=== PATIENT | female | born 1945 | race Caucasian/White ===

== ENCOUNTER 2023-03-11 17:26 | Emergency (ER) | payer MEDICARE, SELFPAY ==
[2023-03-11 18:11] VITALS: BP 168/74; PULSE 79; RESP 16; TEMP 37.2; O2SAT 96
[2023-03-11 18:15] VITALS: BMI 30.3
--- NOTE | 2023-03-11 18:26 | CTR_ITS ---
PROCEDURE INFORMATION: Exam: CT Head Without Contrast Exam date and time: 03/11/2023 6:37 PM Age: 77 years old Clinical indication: Injury or trauma; Blunt trauma (contusions or hematomas); Patient HX: Fall today. Contusion to left lower orbit. ; Additional info: Fall with head injury TECHNIQUE: Imaging protocol: Computed tomography of the head without contrast. Radiation optimization: All CT scans at this facility use at least one of these dose optimization techniques: automated exposure control; mA and/or kV adjustment per patient size (includes targeted exams where dose is matched to clinical indication); or iterative reconstruction. REPORTING DATA: Count of CT and Cardiac NM exams in prior 12 months: This patient has received 0 known CTs and 0 known cardiac nuclear medicine studies in the 12 months prior to the current study. COMPARISON: No relevant prior studies available. RADIATION DOSE METRICS: Total DLP (mGy-cm): 1095.78 FINDINGS: Brain: There is mild small vessel disease. There is no evidence of acute parenchymal hemorrhage, extra-axial collection, or acute infarction. There is no mass effect, midline shift, or downward herniation. Cerebral ventricles: No ventriculomegaly. Paranasal sinuses: Visualized sinuses are unremarkable. No fluid levels. Mastoid air cells: Visualized mastoid air cells are well aerated. Orbital cavities: There is a fracture through the inferior wall of the left orbit. Please refer to dedicated facial bone CT. Bones/joints: See Orbital cavities finding. Soft tissues: Unremarkable. CT/CT head wo con* [id number] IMPRESSION: Mild small vessel disease. No evidence of acute intracranial process.
--- NOTE | 2023-03-11 18:29 | CTR_ITS ---
PROCEDURE INFORMATION: Exam: CT Maxillofacial Without Contrast Exam date and time: 03/11/2023 6:39 PM Age: 77 years old Clinical indication: Injury or trauma; Blunt trauma (contusions or hematomas); Orbit/periorbital; Patient HX: Fall today. Contusion to left lower orbit. ; Additional info: Fall with facial injuries TECHNIQUE: Imaging protocol: Computed tomography of the face without contrast. Radiation optimization: All CT scans at this facility use at least one of these dose optimization techniques: automated exposure control; mA and/or kV adjustment per patient size (includes targeted exams where dose is matched to clinical indication); or iterative reconstruction. REPORTING DATA: Count of CT and Cardiac NM exams in prior 12 months: This patient has received 0 known CTs and 0 known cardiac nuclear medicine studies in the 12 months prior to the current study. COMPARISON: CT head wo con* [id number] 03/11/2023 6:37 PM RADIATION DOSE METRICS: Total DLP (mGy-cm): 589.58 FINDINGS: Orbital cavities: There is a comminuted and displaced fracture through the inferior wall of the left orbit with inferior displacement of multiple fracture components. There is also an acute fracture through the inferior left lamina papyracea. 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 Paranasal sinuses: There is presumed hematoma in the left maxillary sinus. Soft tissues: There is left periorbital soft tissue swelling. CT/CT facial bones wo con* [id number] IMPRESSION: 1. Comminuted and displaced fracture through the inferior wall of the left orbit with inferior displacement of multiple fracture components. Correlation for entrapment is recommended. 2. Acute fracture through the inferior left lamina papyracea.
[2023-03-11 18:34] LABS: Basophils # 0.1 10^3/uL (0.0-0.1); Basophils % 0.8 %; Eosinophils # 0.4 10^3/uL (0.0-0.8); Eosinophils % 4.8 %; Hematocrit 45.3 % (37.0-47.0); Hemoglobin 15.5 g/dL (11.5-15.3); Lymphocytes % 26.9 %; Mean Corpuscular HGB Conc 34.2 g/dL (30.0-36.0); Mean Corpuscular Volume 90.6 fl (81-99); Mean Platelet Volume 11.5 fL (7.4-10.4); Monocytes # 0.5 10^3/uL (0.2-0.9); Monocytes % 7.2 %; Neutrophils # 4.49 10^3/uL (1.8-7.7); Nucleated Red Blood Cells % 0 %; Platelet Count 190 10^3/cmm (130-400); Red Cell Distribution Width 14.1 % (12.1-15.1); White Blood Count 7.5 10^3/uL (4.0-10.0)
[2023-03-11 18:54] LABS: Alanine Aminotransferase 20 U/L (0-33); Albumin Level 4.2 g/dL (3.5-5.2); Alkaline Phosphatase 94 U/L (35-105); Anion Gap 14.7 (5-19); Aspartate Amino Transferase 19 U/L (0-32); Blood Urea Nitrogen 8 mg/dL (8-23); Carbon Dioxide 25 mmol/L (22-29); Chloride 103 mmol/L (98-107); Globulin 2.8 g/dL (1.3-4.6); Glucose 92 mg/dL (65-115); Osmolality Calculated 286 mOsm/kg (285-295); Potassium 3.7 mmol/L (3.5-5.1); Sodium 139 mmol/L (136-145); Total Bilirubin 1.1 mg/dL (0.15-1.2)
--- NOTE | 2023-03-11 19:16 | W.ED.NEUROSD ---
HPI - Neuro Symptoms/Deficit General: Chief Complaint: Neuro Symptoms/Deficit Stated Complaint: FACIAL DROOP RESOLVED Time Seen by Provider: 03/11/23 17:32 Source: patient Mode of arrival: EMS History of Present Illness: This 77-year-old female presents to the ER for evaluation of head injury that occurred 4 to 5 days ago. Patient fell, hitting the left side of the face. There was no associated loss of consciousness and patient felt well at the time, daughter had wanted to bring her to the hospital but patient declined. Today, daughter stated that patient's left side of the face felt like it was drooping and patient was talking like someone without teeth. Patient noted that some of her teeth were missing but in any case came in to be evaluated. She is at her baseline and is in no distress. Associated symptoms: Deny chest pain or headache(s) Review of Systems Const: Denies: chills, body aches or change in appetite Eyes: Denies: change in vision or eye discharge ENMT: Denies: throat pain, dental pain or nasal discharge Card: Denies: chest pain or lightheadedness : Denies: dysuria Musc: Denies: neck pain or back pain Neuro: Reports: Slurred speech present and other (Facial droop); Denies: headache(s) or weakness in extremities Psych: Denies: depression Srinivas/Lymph: Denies: easy bruising All/Imm: Denies: urticaria, tongue swelling or facial swelling Physical Exam Const: COMMON NORMALS: no acute distress, patient oriented x3, no limitations and alert HENMT: COMMON NORMALS: normocephalic HEAD & SCALP: normocephalic OTHER: Healing left periorbital bruise. Tenderness over the left cheek. Eye: COMMON NORMALS: EOMs intact bilaterally Neck/C-Spine: COMMON NORMALS: full ROM and supple Chest: COMMONS NORMALS: normal inspection of the chest Resp: COMMON NORMALS: normal respiratory effort, No retractions, No use of accessory muscles and clear to auscultation bilaterally AUSCULTATION: clear to auscultation bilaterally Cardio: COMMON NORMALS: regular rate, regular rhythm and No murmurs present (Cardio) RATE: regular rate RHYTHM: regular rhythm GI: COMMON NORMALS: Normal to inspection, nondistended, normoactive bowel sounds present and non-tender : COMMON NORMALS: Yes no CVA tenderness BLADDER/KIDNEY EXAM: Yes no CVA tenderness Back/Pelvis: COMMON NORMALS: no CVA tenderness and no thoracic nor lumbar tenderness Extremity: GENERAL: Yes normal exam except as noted Neuro: COMMON NORMALS: patient oriented x3 and no focal motor deficits SENSORIUM/ORIENTATION: Yes alert OTHER: Patient has no demonstrable neuro deficits. Psych: COMMON NORMALS: mental status grossly normal and cooperative Course Vital Signs: Vital signs: Vital Signs Temperature 99 F 03/11/23 18:11 Pulse Rate 79 03/11/23 18:11 Respiratory Rate 16 03/11/23 18:11 Blood Pressure 168/74 03/11/23 18:11 Pulse Oximetry 96 03/11/23 18:11 Oxygen Delivery Me thod Room Air 03/11/23 18:11 MDM - Neuro Symptoms/Deficit Medical Decision Making Medical decision making: History as above. On exam, patient NIH stroke scale is 0. There is no facial droop and her speech is clear. She is worried that the head injury she sustained 4 days ago may be responsible for her symptoms this morning. CT facial bones reveals a comminuted and displaced fracture through the inferior wall of the left orbit with inferior displacement of multiple fracture fragments. there is also acute fracture through the inferior left lamina papyracea. This was discussed with ENT surgeon, Dr. Cardenas who advised covering patient with antibiotics (Augmentin) and Medrol Dosepak for the inflammation. Patient should not blow her nose. He will see patient in the office. This was communicated to patient who verbalized understanding and agrees with the plan. Lab Data 03/11/23 18:18 03/11/23 18:[address] 03/11/23 18:26 IMPRESSION: Mild small vessel disease. No evidence of acute intracranial process. Face CT 03/11/23 18:29 IMPRESSION: 1. Comminuted and displaced fracture through the inferior wall of the left orbit with inferior displacement of multiple fracture components. Correlation for entrapment is recommended. 2. Acute fracture through the inferior left lamina papyracea. Laboratory Results WBC 7.5 10^3/uL (4.0-10.0) 03/11/23 18:18 RBC 5.00 10^6/uL (4.1-5.3) 03/11/23 18:18 Hgb 15.5 g/dL (11.5-15.3) H 03/11/23 18:18 Hct 45.3 % (37.0-47.0) 03/11/23 18:18 MCV 90.6 fl (81-99) 03/11/23 18:18 MCH 31.0 pg (28.0-34.0) 03/11/23 18:18 MCHC 34.2 g/dL (30.0-36.0) 03/11/23 18:18 RDW 14.1 % (12.1-15.1) 03/11/23 18:18 Plt Count 190 10^3/cmm (130-400) 03/11/23 18:18 MPV 11.5 fL (7.4-10.4) H 03/11/23 18:18 Neut % (Auto) 60.0 % 03/11/23 18:18 Lymph % (Auto) 26.9 % 03/11/23 18:18 [place] % (Auto) 7.2 % 03/11/23 18:18 Eos % (Auto) 4.8 % 03/11/23 18:18 Baso % (Auto) 0.8 % 03/11/23 18:18 Neut # (Auto) 4.49 10^3/uL (1.8-7.7) 03/11/23 18:18 Lymph # (Auto) 2.0 10^3/uL (0.8-4.8) 03/11/23 18:18 [place] # (Auto) 0.5 10^3/uL (0.2-0.9) 03/11/23 18:18 Eos # (Auto) 0.4 10^3/uL (0.0-0.8) 03/11/23 18:18 Baso # (Auto) 0.1 10^3/uL (0.0-0.1) 03/11/23 18:18 Nucleated RBC % (auto) 0 % 03/11/23 18:18 Nucleated RBCs # 0.0 /100WBC 03/11/23 18:18 Sodium 139 mmol/L (136-145) 03/11/23 18:18 Potassium 3.7 mmol/L (3.5-5.1) 03/11/23 18:18 Chloride 103 mmol/L (98-107) 03/11/23 18:18 Carbon Dioxide 25 mmol/L (22-29) 03/11/23 18:18 Anion Gap 14.7 (5-19) 03/11/23 18:18 BUN 8 mg/dL (8-23) 03/11/23 18:18 Creatinine 0.5 mg/dL (0.5-0.9) 03/11/23 18:18 GFR Calculation Not Reportable 03/11/23 18:18 Glucose 92 mg/dL (65-115) 03/11/23 18:18 Calculated Osmolality 286 mOsm/kg (285-295) 03/11/23 18:18 Calcium 9.0 mg/dL (8.5-10.5) 03/11/23 18:18 Total Bilirubin 1.1 mg/dL (0.15-1.2) 03/11/23 18:18 AST 19 U/L (0-32) 03/11/23 18:18 ALT 20 U/L (0-33) 03/11/23 18:18 Alkaline Phosphatase 94 U/L (35-105) 03/11/23 18:18 Total Protein 7.0 g/dL (6.6-8.7) 03/11/23 18:18 Albumin 4.2 g/dL (3.5-5.2) 03/11/23 18:18 Globulin 2.8 g/dL (1.3-4.6) 03/11/23 18:18 Discharge Plan Discharge Patient Disposition: Home Clinical Impression: Closed head injury, Fracture of inferior orbital wall Condition: Stable Prescriptions: New methylprednisolone [Medrol (Yung)] 4 mg tablets,dose pack See Rx Instructions .ROUTE .COMPLEX Qty: 21 0RF Rx Instructions: orally per package directions amoxicillin-pot clavulanate 875-125 mg tablet 1 tab PO BID Qty: 14 0RF Discharge Orders: Discharge ED (Routine); Ordered 03/11/23 Ordered By: Lisa Rivers Referrals: Kylie Ott APN [Primary Care Provider] - Discharge Diet: Usual diet Discharge Activity: Resume usual activity Patient Instructions: Opioid Safety, Pain Management Activity Restrictions/Additional Instructions: Do not blow your nose. Take Augmentin and Medrol Dosepak as prescribed. Call Dr. Cardenas's office to schedule a follow-up appointment this week. Return if you develop fever, worsening pain or any new concerning symptoms. Coding Level of Care Code ED Preparing Box Tender for Gee Handy
[2023-03-11] MEDS: amoxicillin-clav 875-125 mg Tablet 1 TAB PO (20:35)
[2023-03-11 20:38] VITALS: PULSE 79; RESP 16; O2SAT 97
--- NOTE | 2023-03-12 08:28 | DCPLANNER ---
Addendum entered by Dary Morse 03/21/23 13:31: farrowing manager received the following message from the ENT clinic regarding follow up appointment: I have tried calling pt 4 times no and left vm. Mailed patient a letter. On 03/16/23 @ 09:07 Aidan Dickson Wrote To General Surgery Front Off Called pt and left a vm 03/15/23 On 03/15/23 @ 08:40 Aidan Dickson Wrote To ENT Front Office Called pt and left a vm 03/15/23 On 03/13/23 @ 16:31 Dar Saunders Wrote To ENT Front Office lvm Original Note: farrowing manager had message to schedule a follow up appointment for patient with ENT. farrowing manager sent patients information to the front office staff at ENT. Patients information will be printed and reviewed. Clinic will call patient with appointment information.
== END 2023-03-11 20:43 | disposition home or self-care (01) ==
PROVIDERS: Emergency Provider Family Medicine; PCP Nurse Practitioner Family
DX: S09.8XXA Other specified injuries of head, initial encounter (principal); S02.32XA Fracture of orbital floor, left side, initial encounter for closed fracture; W19.XXXA Unspecified fall, initial encounter
CPT/HCPCS: 70450; 70486; 80053; 85025; 99284

== ENCOUNTER → 2023-12-20 08:00 | Outpatient (BNVA) | payer MEDICARE, SELFPAY | PROVIDERS: PCP Nurse Practitioner Family; Visit Provider Thoracic Surgery (Cardiothoracic Vascular Surgery) | DX: I96 Gangrene, not elsewhere classified (principal); L97.511 Non-pressure chronic ulcer of other part of right foot limited to breakdown of skin | CPT/HCPCS: 97597; 99213 ==

== ENCOUNTER 2023-12-27 10:21 | Outpatient (CLI) | payer MEDICARE, SELFPAY ==
--- NOTE | 2023-12-27 10:34 | XR_ITS ---
WS: [id number] XR foot RT min 3V* [id number] REASON FOR EXAM: check for bone involvment FINDINGS: No fracture or focal bone lesion. No periosteal reaction or bone erosion. Moderate narrowing of the joint spaces with mild subchondral sclerosis in the PIP and DIP joints of t he toes. Subluxation in the DIP joints of the third through the fifth toes. Remainder of the forefoot joint spaces are intact and relatively well preserved. Moderate narrowing with subchondral sclerosis and small marginal osteophytosis in the Lisfranc joint . The intertarsal joints and the Chopart joint are intact and relatively well preserved. Minimal narr owing with minimal subchondral sclerosis in the talonavicular and navicular cuneiform articulations. Subtalar joint is not optimally demonstrated. Moderate calcaneal plantar enthesophyte. 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 No findings of osteomyelitis. Evaluation of the distal phalanges is difficult d ue to the subluxations.
== END 2023-12-27 10:22 | disposition home or self-care (01) ==
LOC: RAD 10:23
PROVIDERS: PCP Nurse Practitioner Family; Visit Provider Thoracic Surgery (Cardiothoracic Vascular Surgery)
DX: S91.301A Unspecified open wound, right foot, initial encounter (principal); E11.621 Type 2 diabetes mellitus with foot ulcer; L97.509 Non-pressure chronic ulcer of other part of unspecified foot with unspecified severity
CPT/HCPCS: 73630; 87070; 87176; 87205; 97597

== ENCOUNTER → 2024-01-03 13:40 | Outpatient (BNVA) | payer MEDICARE, SELFPAY | PROVIDERS: PCP Nurse Practitioner Family; Visit Provider Thoracic Surgery (Cardiothoracic Vascular Surgery) | DX: L89.892 Pressure ulcer of other site, stage 2 (principal) | CPT/HCPCS: 97597 ==

== ENCOUNTER 2024-01-16 15:35 | Outpatient (CLI) | payer MEDICARE, SELFPAY ==
[2024-01-16 16:07] LABS: Basophils # 0.1 10^3/uL (0.0-0.1); Basophils % 0.9 %; Eosinophils # 0.4 10^3/uL (0.0-0.8); Eosinophils % 5.6 %; Hematocrit 42.8 % (36-47); Lymphocytes # 2.3 10^3/uL (0.8-4.8); Lymphocytes % 34.5 %; Mean Corpuscular HGB Conc 33.9 g/dL (30-55); Mean Corpuscular Hemoglobin 30.9 pg (27-33); Mean Corpuscular Volume 91.3 fl (85-98); Mean Platelet Volume 11.3 fL (7.4-10.4); Monocytes # 0.5 10^3/uL (0.2-0.9); Monocytes % 7.5 %; Neutrophils # 3.46 10^3/uL (1.8-7.7); Neutrophils % 51.2 %; Nucleated Red Blood Cells % 0 %; Platelet Count 198 10^3/cmm (157-399); Red Blood Count 4.69 10^6/uL (3.85-5.65); Red Cell Distribution Width 13.8 % (12.1-15.1); White Blood Count 6.76 10^3/uL (3.29-11.43)
[2024-01-16 16:10] LABS: Erythrocyte Sedimentation Rate 7 mm/hr (0-15)
[2024-01-16 16:30] LABS: Alanine Aminotransferase 27 U/L (0-33); Alkaline Phosphatase 89 U/L (35-105); Aspartate Amino Transferase 26 U/L (0-32); Blood Urea Nitrogen 12 mg/dL (8-23); C Reactive Protein 14.1 mg/L (0.0-4.9); Carbon Dioxide 28 mmol/L (22-29); Chloride 102 mmol/L (98-107); Globulin 3.1 g/dL (1.3-4.6); Glucose 164 mg/dL (65-115); Osmolality Calculated 291 mOsm/kg (285-295); Sodium 139 mmol/L (136-145); Total Bilirubin 0.5 mg/dL (0.15-1.2); Total Protein 7.1 g/dL (6.6-8.7)
[2024-01-16 16:36] LABS: Estmated Average Glucose 148; Hemoglobin A1C 6.8 % (4.0-6.0)
== END 2024-01-16 15:36 | disposition home or self-care (01) ==
PROVIDERS: PCP Nurse Practitioner Family; Visit Provider Thoracic Surgery (Cardiothoracic Vascular Surgery)
DX: E08.621 Diabetes mellitus due to underlying condition with foot ulcer (principal); L97.519 Non-pressure chronic ulcer of other part of right foot with unspecified severity; I96 Gangrene, not elsewhere classified; L89.892 Pressure ulcer of other site, stage 2
CPT/HCPCS: 80053; 83036; 85025; 85651; 86140; 97597